=== PATIENT | male | born 1980 | race Caucasian/White ===

== ENCOUNTER 2016-09-04 08:40 | Emergency (ER) | payer MEDICAID, OTHER ==
[~2016-09-04] VITALS: Ht 172.7 cm; Wt 71.9 kg
[~2016-09-04 08:40] MED LIST: ADVA100A INH; ALBU.5I NEB; ALBUAER3 INH; NAPR500T PO; NEBULIZER/ADULT1 KIT
[2016-09-04 08:46] VITALS: BP 128/84; PULSE 85; RESP 16; TEMP 98.1; O2SAT 99
--- NOTE | 2016-09-04 09:50 | RADHPO ---
EXAM DATE/TIME: 09/04/2016 09:30 [facility] COMPARISON: No previous studies available for comparison. INDICATIONS : Cough, short of breath, chest pain MEDICAL HISTORY : Angina. SURGICAL HISTORY : None. ENCOUNTER: Initial ACUITY: 1 week PAIN SCORE: 7/10 LOCATION: Bilateral chest FINDINGS: PA and lateral views of the chest demonstrate the lungs to be symmetrically aerated without evidence of mass, infiltrate or effusion. The cardiomediastinal contours are unremarkable. Osseous structure s are intact. CONCLUSION: No acute disease. Gaetano Stanford MD on September 04, 2016 at 9:46 Board Certified Radiologist. This report was verified electronically.
[2016-09-04] MEDS ORDERED: ALBUAER3 INH (09:53)
[2016-09-04] MEDS ORDERED: ALBU.5I NEB (09:53)
[2016-09-04] MEDS ORDERED: ZITHTAB PO (09:54)
[2016-09-04] MEDS ORDERED: PRED-503 PO (09:54)
--- NOTE | 2016-09-04 09:54 | PD ---
HPI Chief Complaint: Cold / Flu Symptoms Time Seen by Provider: 09:00 Travel History International Travel<30 days: No Contact w/Intl Traveler<30days: No Traveled to known affect area: No History of Present Illness HPI This is a 36-year-old male presents to the emergency department about a week's worth of URI symptoms, cough congestion chills, no definite fevers. He is a history of asthma. Been using his inhaler. Last night he states he felt a lot of chest tightness and pressure in his chest. He has a history of "angina". He said previous negative workup for coronary disease including a stress test about 2 years ago. He does state he feels some wheezing at times. Cough is productive of green phlegm. No other complaints. History Past Medical History Narrative Medical Asthma Angina Tetanus Vaccination: > 5 Years Influenza Vaccination: No Social History Alcohol Use: Yes Tobacco Use: No (never) Allergies-Medications (Allergen,Severity, Reaction): Coded Allergies: Vicodin (Verified Allergy, Mild, itch, 09/04/16) Reported Meds & Prescriptions Reported Meds & Active Scripts Active Albuterol Neb (Albuterol Sulfate) 2.5 Mg/0.5 Ml Neb 2.5 Mg NEB TID NEB PRN Note: The Albuterol Sulfate Inhalation Solution is concentrated and must be diluted. Read complete instructions carefully before using. Proair Hfa 8.5 GM Inh (Albuterol Sulfate) 90 Mcg/Act Aer 1 Puff INH Q4H PRN 108 mcg/actuation Nebulizer/Adult Mask (N/A) 1 Kit Kit 1 Kit .ROUTE DIRECTED Advair Diskus Inh (Fluticasone-Salmeterol Inh) 100-50 Mcg/Blist Aer 1 Puff INH BID Rinse mouth after use. Review of Systems Except as stated in HPI: all other systems reviewed are Neg Physical Exam Narrative GENERAL: Well-appearing 36-year-old man, no acute distress. SKIN: Warm and dry. HEAD: Atraumatic. Normocephalic. EYES: Pupils equal and round. No scleral icterus. No injection or drainage. ENT: No nasal bleeding or discharge. Mucous membranes pink and moist. Throat is normal. NECK: Trachea midline. No JVD. CARDIOVASCULAR: Regular rate and rhythm. No murmur appreciated. RESPIRATORY: No accessory muscle use. Clear to auscultation. Breath sounds equal bilaterally. GASTROINTESTINAL: Abdomen soft, non-tender, nondistended. Hepatic and splenic margins not palpable. MUSCULOSKELETAL: No obvious deformities. No edema. NEUROLOGICAL: Awake and alert. No obvious cranial nerve deficits. Motor grossly within normal limits. Normal speech. PSYCHIATRIC: Appropriate mood and affect; insight and judgment normal. Data Data Last Documented VS Vital Signs Date Time Temp Pulse Resp B/P Pulse Ox O2 Delivery O2 Flow Rate FiO2 09/04/16 08:56 16 99 Room Air 09/04/16 08:46 98.1 85 128/84 Orders Chest, Pa & Lat (09/04/16 ) Electrocardiogram (09/04/16 ) [facility] Medical Decision Making Medical Screen Exam Complete: Yes Emergency Medical Condition: Yes Interpretation(s) My review of chest x-ray: Negative Review of EKG: Normal sinus rhythm at a rate of 70, short CO interval at 98, no delta waves, no definite evidence of acute ischemia. Differential Diagnosis Bronchitis, asthma exacerbation, pneumonia, pneumothorax, other Narrative Course Medical decision making 36-year-old male with acute bronchitis, no evidence of pneumonia, some evidence of asthma exacerbation. History of chest pain in the past. This chest tightness possibly the same as previous, possibly related to asthma exacerbation. Diagnosis Primary Impression: Acute bronchitis Qualified Code: J20.9 - Acute bronchitis, unspecified organism Additional Instructions: Take prednisone as prescribed. Continue albuterol inhaler every 4-6 hours until symptoms resolve. If symptoms have not improved in 3-5 days, take azithromycin as prescribed. Return to the emergency department for any new or worsening symptoms. Med/Other Pt SpecificInfo: Prescription(s) given Scripts Azithromycin (Zithromax Z-Stephan)250 Mg Vtaf625 Mg PO DIRECTED #1 DSPK 500 MG (2 tabs) day 1, then 1 tab days 2-5. Prov:Fco Bernard MD 09/04/16 Prednisone (Deltasone)20 Mg Tab60 Mg PO DAILY 5 Days Prov:Fco Bernard MD 09/04/16 Albuterol Neb 2.5 Mg/0.5 Ml Neb2.5 Mg NEB TID NEB PRN (SHORTNESS OF BREATH) #1 VIAL Ref 3 Note: The Albuterol Sulfate Inhalation Solution is concentrated and must be diluted. Read complete instructions carefully before using. Prov:Fco Bernard MD 09/04/16 Albuterol 8.5 GM Inh (Proair Hfa 8.5 GM Inh)90 Mcg/Act Aer1 Puff INH Q4H PRN ( SHORTNESS OF BREATH) #1 INHALER Ref 3 108 mcg/actuation Prov:Fco Bernard MD 09/04/16 Disposition: 01 DISCHARGE HOME Condition: Stable Fco Bernard MD Sep 04, 2016 09:54
--- NOTE | 2016-09-05 11:54 | EKG ---
Date Performed: 09/04/2016 Time Performed: 09:33:20 PTAGE: 36 years EKG: Sinus rhythm Short VA interval Borderline ECG NO PREVIOUS TRACING DOCTOR: Ovidio Weems Interpretating Date/Time 09/05/2016 11:52:16
[2016-10-06] MEDS ORDERED: CYMB30CA PO (10:31)
[2016-10-06] MEDS ORDERED: ALPR.5 PO (10:31)
[2016-11-08] MEDS ORDERED: ALPR.5 PO (09:50)
[2016-11-08] MEDS ORDERED: CYMB30CA PO (09:50)
== END 2016-09-04 10:06 | disposition home or self-care (01) ==
LOC: PHED 08:40
DX: J20.9 Acute bronchitis, unspecified (principal); R94.31 Abnormal electrocardiogram [ECG] [EKG]; J45.909 Unspecified asthma, uncomplicated
CPT/HCPCS: 71020; 93005

== ENCOUNTER 2016-09-14 11:47 | Emergency (ER) | payer MEDICAID, OTHER ==
[~2016-09-14] VITALS: Ht 172.7 cm; Wt 73.1 kg
[~2016-09-14 11:47] MED LIST changes: -NAPR500T PO; +PRED-503 PO; +ZITHTAB PO
[2016-09-14 11:49] VITALS: BP 136/87; PULSE 69; RESP 16; TEMP 98.3; O2SAT 99
[2016-09-14] MEDS ORDERED: ADVA100A INH (12:01)
[2016-09-14] MEDS ORDERED: SODIUM CHLORID 0.9% 500 ML INJ 500 ML IV ONE (12:30)
[2016-09-14] MEDS ORDERED: SODIUM CHLORIDE 0.9% FLUSH 5 ML FLUSH IVF PRN (12:30)
[2016-09-14 12:31] VITALS: RESP 16; O2SAT 99
[2016-09-14 12:39] LABS: AUTOMATED NEUTROPHIL # 4.5 TH/MM3 (1.8-7.7); BASOPHIL # 0.1 TH/MM3 (0-0.2); BASOPHIL % 0.8 % (0.0-2.0); EOSINOPHIL # 0.1 TH/MM3 (0-0.4); EOSINOPHIL % 1.7 % (0.0-4.0); HEMATOCRIT 43.7 % (39.0-51.0); HEMO FLAGS DIFF FINAL; LYMPH % 25.5 % (9.0-44.0); LYMPHOCYTE # 1.7 TH/MM3 (1.0-4.8); MEAN CELL VOLUME 89.4 FL (80.0-100.0); MEAN CORPUSCULAR HGB CONC 33.5 % (32.0-36.0); MONO % 5.9 % (0.0-8.0); NEUT % 66.1 % (16.0-70.0); PLATELET COUNT 226 TH/MM3 (150-450); RED BLOOD COUNT 4.89 MIL/MM3 (4.50-5.90); WHITE BLOOD COUNT 6.8 TH/MM3 (4.0-11.0)
[2016-09-14] MEDS: NITROGLYCERIN 0.4 MG SL 25 TABS/BTL SL SCH ×3 (12:41→12:49)
[2016-09-14 12:42] VITALS: BP 142/87; PULSE 66; RESP 16; O2SAT 99
--- NOTE | 2016-09-14 12:43 | PD ---
HPI Chief Complaint: Chest Pain Time Seen by Provider: 12:03 Travel History International Travel<30 days: No Contact w/Intl Traveler<30days: No Traveled to known affect area: No History of Present Illness HPI Patient is a 36-year-old male with history of "angina" who presents to emergency room with complaints of chest pain. Patient reports that he began to have chest pain yesterday afternoon, reports that he had a sharp stabbing and shooting pain which lasted for about 10 minutes at a time. Patient reports that he had improvement of this pain over the day yesterday, reports that he woke up this morning and began to have increased neck pain. Reports that he always has "some chest pain" and his was concerned about his symptoms. Reports that 2 years ago, he was diagnosed with "angina" while he was living in [place]. Reports that he had a stress test at that time, patient unsure of what this stress test showed. Reports that he does not follow-up with a new car make ready mechanic here in [place]. Reports that he does follow up with her primary care doctor, Dr. Trent Anguiano who recommended that he be put on nitro for his "angina." Reports that he does not have history of hypertension, hyperlipidemia, diabetes , no history of coronary disease that he knows about. He is a nonsmoker, reports no family history of early UT or coronary artery disease. Patient reports that he was recently treated for bronchitis last week and recently completed his course of steroids as well as antibiotics. PFSH Past Medical History Asthma: Yes Cardiovascular Problems: Yes (ANGINA) Chest Pain: Yes (angina per pt) Diminished Hearing: No Respiratory: Yes (ASTHMA) Immunizations Current: Yes Tetanus Vaccination: Unknown Past Surgical History Genitourinary Surgery: Yes (vasectomy) Other Surgery: Yes (skin graft from right thigh to left calf area, fb remval forehead) Family History Family History: Negative Family Myocardial Infarction: No Social History Alcohol Use: Yes Tobacco Use: No (never) Substance Use: Yes (thc occasionally) Allergies-Medications (Allergen,Severity, Reaction): Coded Allergies: Vicodin (Verified Allergy, Mild, itch, 09/14/16) Reported Meds & Prescriptions Reported Meds & Active Scripts Active Albuterol Neb (Albuterol Sulfate) 2.5 Mg/0.5 Ml Neb 2.5 Mg NEB TID NEB PRN Note: The Albuterol Sulfate Inhalation Solution is concentrated and must be diluted. Read complete instructions carefully before using. Proair Hfa 8.5 GM Inh (Albuterol Sulfate) 90 Mcg/Act Aer 1 Puff INH Q4H PRN 108 mcg/actuation Nebulizer/Adult Mask (N/A) 1 Kit Kit 1 Kit .ROUTE DIRECTED Reported Advair Diskus Inh (Fluticasone-Salmeterol Inh) 100-50 Mcg/Blist Aer 1 Puff INH DAILY Rinse mouth after use. Review of Systems General / Constitutional: No: Fever Eyes: No: Visual changes HENT: No: Headaches Cardiovascular: Positive: Chest Pain or Discomfort, Palpitations Respiratory: No: Cough, Shortness of Breath, Wheezing Gastrointestinal: No: Abdominal Pain Genitourinary: No: Dysuria Musculoskeletal: No: Pain Skin: No Rash Neurologic: No: Weakness Psychiatric: No: Depression Endocrine: No: Polydipsia Hematologic/Lymphatic: No: Easy Bruising Physical Exam Narrative GENERAL: No acute distress, nontoxic SKIN: Warm and dry. HEAD: Atraumatic. Normocephalic. EYES: No injection or drainage. ENT: No nasal bleeding or discharge. Mucous membranes pink and moist. NECK: Trachea midline. No JVD. CARDIOVASCULAR: Regular rate and rhythm. No murmur appreciated. RESPIRATORY: No accessory muscle use. Clear to auscultation. Breath sounds equal bilaterally. GASTROINTESTINAL: Abdomen soft, non-tender, nondistended. Hepatic and splenic margins not palpable. MUSCULOSKELETAL: No obvious deformities. No clubbing. No cyanosis. No edema. NEUROLOGICAL: Awake and alert. No obvious cranial nerve deficits. Motor grossly within normal limits. Normal speech. PSYCHIATRIC: Appropriate mood and affect; insight and judgment normal. Data Data Last Documented VS Vital Signs Date Time Temp Pulse Resp B/P Pulse Ox O2 Delivery O2 Flow Rate FiO2 09/14/16 12:42 66 16 142/87 99 Room Air 09/14/16 11:49 98.3 Orders Electrocardiogram (09/14/16 12:26) Ckmb (Isoenzyme) Profile (09/14/16 12:26) Complete Blood Count With Diff (09/14/16 12:26) Comprehensive Metabolic Panel (09/14/16 12:26) D-Dimer (09/14/16 12:26) Prothrombin Time / Inr (Pt) (09/14/16 12:26) Act Partial Throm Time (Ptt) (09/14/16 12:26) Troponin I (09/14/16 12:26) Lipase (09/14/16 12:26) Chest, Single Ap (09/14/16 12:26) Ecg Monitoring (09/14/16 12:26) Iv Access Insert/Monitor (09/14/16 12:26) Oximetry (09/14/16 12:26) Sodium Chloride 0.9% Flush (Ns Flush) (09/14/16 12:30) Sodium Chlorid 0.9% 500 Ml Inj (Ns 500 M (09/14/16 12:30) Nitroglycerin Sl (Nitrostat Sl) (09/14/16 12:45) CKMB (09/14/16 12:20) CKMB% (09/14/16 12:20) Electrocardiogram (09/14/16 ) Labs Laboratory Tests Test 09/14/16 12:20 White Blood Count 6.8 TH/MM3 Red Blood Count 4.89 MIL/MM3 Hemoglobin 14.7 GM/DL Hematocrit 43.7 % Mean Corpuscular Volume 89.4 FL Mean Corpuscular Hemoglobin 30.0 PG Mean Corpuscular Hemoglobin 33.5 % Concent Red Cell Distribution Width 12.0 % Platelet Count 226 TH/MM3 Mean Platelet Volume 9.1 FL Neutrophils (%) (Auto) 66.1 % Lymphocytes (%) (Auto) 25.5 % Monocytes (%) (Auto) 5.9 % Eosinophils (%) (Auto) 1.7 % Basophils (%) (Auto) 0.8 % Neutrophils # (Auto) 4.5 TH/MM3 Lymphocytes # (Auto) 1.7 TH/MM3 Monocytes # (Auto) 0.4 TH/MM3 Eosinophils # (Auto) 0.1 TH/MM3 Basophils # (Auto) 0.1 TH/MM3 CBC Comment DIFF FINAL Differential Comment Prothrombin Time 11.6 SEC Prothromb Time International 1.0 RATIO Ratio Activated Partial 25.4 SEC Thromboplast Time D-Dimer Quantitative (PE/DVT) LESS THAN 0.19 MG/L FEU Sodium Level 141 MEQ/L Potassium Level 3.8 MEQ/L Chloride Level 105 MEQ/L Carbon Dioxide Level 28.5 MEQ/L Anion Gap 8 MEQ/L Blood Urea Nitrogen 10 MG/DL Creatinine 0.97 MG/DL Estimat Glomerular Filtration 89 ML/MIN Rate Random Glucose 115 MG/DL Calcium Level 8.9 MG/DL Total Bilirubin 0.3 MG/DL Aspartate Amino Transf 17 U/L (AST/SGOT) Alanine Aminotransferase 35 U/L (ALT/SGPT) Alkaline Phosphatase 70 U/L Total Creatine Kinase 147 U/L Creatine Kinase MB 0.8 NG/ML Troponin I LESS THAN 0.02 NG/ML Total Protein 7.4 GM/DL Albumin 4.0 GM/DL Lipase 133 U/L [facility] Medical Decision Making Medical Screen Exam Complete: Yes Emergency Medical Condition: Yes Interpretation(s) EKG at 1201: Normal sinus rhythm at 64bpm, qt/qtc: 400/407, early repolarization on EKG repeat ekg at 1320: NSR at 67bpm, qt/qtc: 394/406, early repol Vital Signs Date Time Temp Pulse Resp B/P Pulse Ox O2 Delivery O2 Flow Rate FiO2 09/14/16 12:31 16 99 Room Air 09/14/16 11:57 16 99 Room Air 09/14/16 11:49 98.3 69 16 136/87 99 Differential Diagnosis ACS, arrhythmia, electrolyte abnormality, bronchitis, pneumonia, pericarditis Narrative Course Patient is a 36-year-old male who presents to emergency room with complaints of chest pain. Patient reports that chest pain feels like a sharp stabbing pain that radiates down his left arm. Patient reports history of as "angina" in the past. Patient does not see a new car make ready mechanic here in [place]. Patient was placed on a quality assurance monitor final upon arrival to the emergency room. EKG ordered. Labs as well as x-ray of the chest ordered for further evaluation of symptoms. We'll give patient a sublingual nitroglycerin to see if that helps with his symptoms. Patient with most likely atypical chest pain at this time. All labs and all studies reviewed with patient in detail. Troponin is less than 0.02, d-dimer is less than 0.19. Given his symptoms, I offered patient observation status in the chest pain unit for his chest pain. Patient refuses admission to the hospital as martir is Valentines night and he has a "hotel reservation" for him and his and he does not want to miss it. is at bedside, reports that she will bring patient back to ER should he have return of symptoms. Discussed with him signs and symptoms of when to return to the ER. Patient will call new car make ready mechanic as well as primary care doctor when he leaves the ER for earliest follow up. Patient understands that he should not perform any exertional activities until he is seen and cleared by new car make ready mechanic. Diagnosis Primary Impression: Chest pain Qualified Code: R07.9 - Chest pain, unspecified type Referrals: Tommy Umana DO Patient Instructions: General Instructions Additional Instructions: Please follow-up with new car make ready mechanic as soon as possible Please follow-up with her primary care doctor as soon as possible Return to the emergency room if symptoms return Do not perform any exertional activities until seen and cleared by a new car make ready mechanic Disposition: 01 DISCHARGE HOME Condition: Stable Lauren Powell DO Sep 14, 2016 12:43
[2016-09-14 12:51] LABS: CHLORIDE 105 MEQ/L (98-107); POTASSIUM 3.8 MEQ/L (3.5-5.1); SODIUM (NA) 141 MEQ/L (136-145)
[2016-09-14 12:54] LABS: ANION GAP 8 MEQ/L (5-15); BICARBONATE 28.5 MEQ/L (21.0-32.0)
[2016-09-14 12:55] LABS: BLOOD UREA NITROGEN 10 MG/DL (7-18)
[2016-09-14 12:57] LABS: ALT (GPT) 35 U/L (12-78); AST (GOT) 17 U/L (15-37); GLOMERULAR FILTRATION RATE 89 ML/MIN (>89)
[2016-09-14 12:59] LABS: TOTAL BILIRUBIN ADULT 0.3 MG/DL (0.2-1.0)
[2016-09-14 13:00] LABS: ALKALINE PHOSPHATASE 70 U/L (45-117); CREATINE KINASE 147 U/L (39-308)
--- NOTE | 2016-09-14 13:02 | RADHPO ---
EXAM DATE/TIME: 09/14/2016 12:40 [facility] COMPARISON: CHEST PA & LAT, September 04, 2016, 9:30. INDICATIONS : Chest pain. MEDICAL HISTORY : Angina. Asthma. SURGICAL HISTORY : None. ENCOUNTER: Initial ACUITY: 2 days PAIN SCORE: 8/10 LOCATION: chest FINDINGS: A single view of the chest demonstrates the lungs to be symmetrically aerated without evidence of mas s, infiltrate or effusion. The cardiomediastinal contours are unremarkable. Osseous structures are intact. There are multiple overlying electrocardiogram leads. CONCLUSION: No acute disease. Too John MD on September 14, 2016 at 13:00 Board Certified Radiologist. This report was verified electronically.
[2016-09-14 13:08] LABS: APTT (PATIENT) 25.4 SEC (24.3-30.1); PROTHROMBIN TIME - PATIENT 11.6 SEC (9.8-11.6)
[2016-09-14 13:12] LABS: CKMB 0.8 NG/ML (0.5-3.6)
--- NOTE | 2016-09-15 23:08 | EKG ---
Date Performed: 09/14/2016 Time Performed: 13:20:04 PTAGE: 36 years EKG: Sinus rhythm Short VT interval Inferior and lateral ST elevation - possible early repolarization Borderline ECG PREVIOUS TRACING : 09/14/2016 12.01 DOCTOR: Fran Del Cid Interpretating Date/Time 09/15/2016 23:02:18
--- NOTE | 2016-09-15 23:11 | EKG ---
Date Performed: 09/14/2016 Time Performed: 12:01:54 PTAGE: 36 years EKG: Sinus rhythm Short HI interval Inferior and lateral ST elevation - possible early repolarization Borderline ECG PREVIOUS TRACING : 09/04/2016 09.33 DOCTOR: Fran Del Cid Interpretating Date/Time 09/15/2016 23:06:34
[2016-10-06] MEDS ORDERED: CYMB30CA PO (10:31)
[2016-10-06] MEDS ORDERED: ALPR.5 PO (10:31)
[2016-11-08] MEDS ORDERED: CYMB30CA PO (09:50)
[2016-11-08] MEDS ORDERED: ALPR.5 PO (09:50)
== END 2016-09-14 13:41 | disposition home or self-care (01) ==
LOC: PHED 11:47
DX: R07.9 Chest pain, unspecified (principal); M54.2 Cervicalgia; J45.909 Unspecified asthma, uncomplicated; R94.31 Abnormal electrocardiogram [ECG] [EKG]
CPT/HCPCS: 71010; 80053; 82550; 82552; 83690; 84484; 85025; 85379; 85610; 85730; 93005; 99285; J7040

== ENCOUNTER 2016-10-03 13:14 | Emergency (ER) | payer MEDICAID, OTHER ==
[~2016-10-03 13:14] MED LIST changes: -PRED-503 PO; -ZITHTAB PO
[2016-10-03 13:19] VITALS: BP 157/92; PULSE 82; RESP 18; TEMP 97.6; O2SAT 100
[2016-10-03 13:23] VITALS: BP 133/89; PULSE 69; RESP 18; TEMP 98.4; O2SAT 100
[2016-10-03 13:29] VITALS: BP 133/89; PULSE 67; RESP 18; TEMP 98.2; O2SAT 100
[2016-10-03] MEDS ORDERED: LORazepam 2 MG/ML VIAL IM ONE (13:45)
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
[2016-10-03 14:31] VITALS: BP 127/80; TEMP 98.2
--- NOTE | 2016-10-04 10:13 | EKG ---
Date Performed: 10/03/2016 Time Performed: 13:28:30 PTAGE: 36 years EKG: Sinus rhythm WITH SHORT RI INTERVAL BORDERLINE ECG Since PREVIOUS TRACING , no significant change noted PREVIOUS TRACING 09/14/2016 13.20.04 DOCTOR: Negro Sotelo Interpretating Date/Time 10/04/2016 10:12:00
[2016-10-06] MEDS ORDERED: CYMB30CA PO (10:31)
[2016-10-06] MEDS ORDERED: ALPR.5 PO (10:31)
[2016-11-08] MEDS ORDERED: ALPR.5 PO (09:50)
[2016-11-08] MEDS ORDERED: CYMB30CA PO (09:50)
== END 2016-10-03 14:20 | disposition home or self-care (01) ==
LOC: NEPC 13:14
DX: F41.1 Generalized anxiety disorder (principal); F43.0 Acute stress reaction; R07.9 Chest pain, unspecified
CPT/HCPCS: 93005; 96372; 99283; J2060